=== PATIENT | male | born 1975 | race Caucasian/White ===

== ENCOUNTER 2016-09-25 17:12 | Inpatient (IN) | payer OTHER ==
[~2016-09-25] VITALS: Ht 167.6 cm; Wt 153.8 kg
[2016-09-25 17:20] VITALS: BP_SYST 185
[2016-09-25] MEDS ORDERED: ACETAMINOPHEN 500 MG TABLET PO ONE (17:45)
[2016-09-25] MEDS ORDERED: IBUPROFEN 800 MG TABLET PO ONE (17:45)
[2016-09-25] MEDS ORDERED: NS 1000 ML BAG IV ONE (17:45)
[2016-09-25 17:50] LABS: HEMATOCRIT 34.4 % (36-54); HEMOGLOBIN 11.2 g/dL (14.0-18.0); MEAN CORPUSCULAR HEMOGLOBIN 28 pg (27-31); MEAN CORPUSCULAR HGB CONC 33 % (32-36); MEAN CORPUSCULAR VOLUME 85 fL (79.0-98.0); PLATELET COUNT (AUTO) 268 K/uL (130-430); RED BLOOD CELL COUNT(AUTO) 4.04 MIL/uL (4.2-6.2); RED CELL DISTRIBUTION WIDTH 13.9 % (9.0-15.0); WHITE BLOOD COUNT (AUTO) 17.7 K/uL (4.8-10.8)
[2016-09-25 18:03] LABS: CREATININE 2.92 mg/dL (0.55-1.30)
[2016-09-25 18:05] LABS: INR 0.9 (0.80-1.20); PROTHROMBIN TIME 10.3 SECS (9.5-12.5)
[2016-09-25 18:08] LABS: ALBUMIN 2.6 g/dL (3.4-4.8); TOTAL BILIRUBIN 0.2 mg/dL (0.0-1.0); TOTAL PROTEIN, SERUM 7.8 g/dL (6.4-8.3)
[2016-09-25 18:11] LABS: ATYPICAL LYMPHOCYTES % 1 % (0-0); BAND % (MANUAL) 22 % (0-6); BASOPHILS % (MANUAL) 0 % (0-2); EOSINOPHILS % (MANUAL) 1 % (0-7); LYMPHOCYTES % (MANUAL) 1 % (20-46); MONOCYTES % (MANUAL) 1 % (0-11)
[2016-09-25 18:15] LABS: POTASSIUM 5.8 mmol/L (3.5-5.1)
[2016-09-25 18:36] LABS: CKMB RELATIVE INDEX 0.9 (0.0-2.9); CREATINE KINASE MB 3.8 ng/mL (0-3.6)
[2016-09-25 18:53] LABS: BILIRUBIN,URINE NEGATIVE (NEGATIVE); BLOOD, URINE 2+ (NEGATIVE); CLARITY/URINE SL HAZY (CLEAR); COLOR,URINE YELLOW (YELLOW); GLUCOSE,URINE 1+ (NEGATIVE); KETONES,URINE NEGATIVE (NEGATIVE); LEUKOCYTE ESTERASE ,URINE NEGATIVE (NEGATIVE); NITRITE, URINE NEGATIVE (NEGATIVE); PH,URINE 5.5 (5.0-8.0); PROTEIN URINE 3+ (NEGATIVE); UROBILINOGEN,URINE 0.2 (0.2-1.0)
[2016-09-25 19:04] LABS: BACTERIA,URINE FEW /HPF (None Seen)
[2016-09-25 19:05] LABS: MUCUS,URINE None Seen /LPF (None Seen); URINE AMORPHOUS URATE 2+ /HPF (None Seen)
[2016-09-25] MEDS ORDERED: cefTRIAXone 1 GM VIAL IM ONE (19:45)
[2016-09-25] MEDS ORDERED: LEVOFLOXACIN 500 MG/D5W 100 ML IV ONE (19:45)
[2016-09-25] MEDS ORDERED: CARV25TA55 PO (20:25)
[2016-09-25] MEDS ORDERED: ACET500C38 PO (20:25)
[2016-09-25] MEDS ORDERED: TORBREX OP (20:25)
[2016-09-25] MEDS ORDERED: FURO-149 PO (20:25)
[2016-09-25] MEDS ORDERED: OLME1TAB50 PO (20:27)
[2016-09-25] MEDS ORDERED: BROM5DRO3 OP ×2 (20:29→20:35)
[2016-09-25] MEDS ORDERED: MOXI3DRO OP (20:34)
[2016-09-25] MEDS ORDERED: BRIM10DR2 OP (20:34)
[2016-09-25] MEDS ORDERED: DORZ10DR8 OP (20:35)
[2016-09-25] MEDS ORDERED: ALBI50PE SQ (20:37)
[2016-09-25] MEDS ORDERED: LIDOCAINE 1%, 20 ML MDV 20 ML ONE (20:50)
[2016-09-25] MEDS ORDERED: INSU100I24 SQ (20:55)
[2016-09-25 21:38] VITALS: BP_SYST 120
[2016-09-25 21:39] VITALS: BP_SYST 120
[2016-09-25 21:44] VITALS: BP_SYST 120
[2016-09-25] MEDS: NACL 0.9% 1,000 ML IV SCH (22:36)
[2016-09-25] MEDS ORDERED: SODIUM BICARBONATE 8.4% JECT 50 MEQ/50 ML SYRINGE IVP ONE (23:00)
[2016-09-25] MEDS ORDERED: SODIUM POLYSTYRENE SULFONATE 15 GM/60 ML UDBTL PO ONE (23:00)
[2016-09-26 00:51] VITALS: BP_SYST 131
[2016-09-26 03:51] VITALS: BP_SYST 167
[2016-09-26] MEDS: NACL 0.9% 1,000 ML IV SCH ×4 (06:31→21:07)
[2016-09-26 06:45] LABS: CALCIUM 7.4 mg/dL (8.4-11.0); CREATININE 3.59 mg/dL (0.55-1.30); POTASSIUM 5.3 mmol/L (3.5-5.1); TOTAL BILIRUBIN 0.3 mg/dL (0.0-1.0); TOTAL PROTEIN, SERUM 6.9 g/dL (6.4-8.3)
[2016-09-26 06:51] LABS: HEMATOCRIT 31.2 % (36-54); HEMOGLOBIN 10.4 g/dL (14.0-18.0)
[2016-09-26 07:26] LABS: MEAN CORPUSCULAR HEMOGLOBIN 29 pg (27-31); MEAN CORPUSCULAR HGB CONC 33 % (32-36); MEAN CORPUSCULAR VOLUME 86 fL (79.0-98.0); PLATELET COUNT (AUTO) 229 K/uL (130-430); RED BLOOD CELL COUNT(AUTO) 3.62 MIL/uL (4.2-6.2); RED CELL DISTRIBUTION WIDTH 14.3 % (9.0-15.0)
[2016-09-26 07:32] LABS: WHITE BLOOD COUNT (AUTO) 28.5 K/uL (4.8-10.8)
[2016-09-26 08:00] VITALS: BP_SYST 158
[2016-09-26] MEDS ORDERED: ALBIGLUTIDE 50 MG SQ SCH (09:30)
[2016-09-26 10:16] LABS: ATYPICAL LYMPHOCYTES % 0 % (0-0); BAND % (MANUAL) 23 % (0-6); BASOPHILS % (MANUAL) 0 % (0-2); EOSINOPHILS % (MANUAL) 0 % (0-7); LYMPHOCYTES % (MANUAL) 3 % (20-46); MONOCYTES % (MANUAL) 1 % (0-11)
[2016-09-26] MEDS ORDERED: DIAMOX SEQUELS 500 MG CAPSULE.SA PO ONE (11:45)
[2016-09-26] MEDS ORDERED: CARVEDILOL 25 MG TABLET (COREG) PO ONE (11:45)
[2016-09-26] MEDS ORDERED: FUROSEMIDE 40 MG TABLET PO ONE (11:45)
[2016-09-26] MEDS ORDERED: MOXIFLOXACIN HCL OP SCH (12:00)
[2016-09-26] MEDS: ACETAMINOPHEN 500 MG TABLET PO PRN ×2 (12:12→14:05)
[2016-09-26 12:35] VITALS: BP_SYST 147
[2016-09-26] MEDS: PIPERACILLIN/TAZO 2.25G/DEX-IS 50 ML IV SCH ×3 (13:43→23:21)
[2016-09-26 16:33] VITALS: BP_SYST 119
[2016-09-26] MEDS ORDERED: SODIUM POLYSTYRENE SULFONATE 15 GM/60 ML UDBTL PO ONE (17:00)
[2016-09-26 20:00] VITALS: BP_SYST 132
[2016-09-26] MEDS ORDERED: LEVOFLOXACIN 500 MG/D5W 100 ML IV SCH (20:00)
[2016-09-26] MEDS: TOBRAMYCIN SULFATE 0.3% EYE DROPS 5 ML OP SCH (21:00)
[2016-09-26] MEDS: DORZOLAMIDE 2% OPHTHALMIC SOLN 5ML OP SCH (21:00)
[2016-09-26] MEDS: CARVEDILOL 25 MG TABLET (COREG) PO SCH (21:04)
[2016-09-27 01:31] VITALS: BP_SYST 134
[2016-09-27 05:45] VITALS: BP_SYST 139
[2016-09-27] MEDS: NACL 0.9% 1,000 ML IV SCH ×3 (05:48→20:38)
[2016-09-27] MEDS: PIPERACILLIN/TAZO 2.25G/DEX-IS 50 ML IV SCH ×3 (05:48→17:16)
[2016-09-27 06:36] LABS: BASOPHILS % (AUTO) 0.2 % (0.0-2.0); EOSINOPHILS # (AUTO) 0.1 K/uL (0.0-0.4); EOSINOPHILS % (AUTO) 0.3 % (0.0-4.0); HEMATOCRIT 28.8 % (36-54); HEMOGLOBIN 9.6 g/dL (14.0-18.0); LYMPHOCYTES # (AUTO) 0.9 K/uL (1.0-5.5); MEAN CORPUSCULAR HEMOGLOBIN 29 pg (27-31); MEAN CORPUSCULAR HGB CONC 33 % (32-36); MEAN CORPUSCULAR VOLUME 87 fL (79.0-98.0); MONOCYTES # (AUTO) 0.6 K/uL (0.0-1.0); MONOCYTES % (AUTO) 3.2 % (1.7-9.3); NEUTROPHILS # (AUTO) 15.9 K/uL (1.8-7.7); NEUTROPHILS % (AUTO) 91.3 % (40.0-70.0); PLATELET COUNT (AUTO) 195 K/uL (130-430); RED BLOOD CELL COUNT(AUTO) 3.32 MIL/uL (4.2-6.2); RED CELL DISTRIBUTION WIDTH 14.6 % (9.0-15.0)
[2016-09-27 06:45] LABS: ALBUMIN 1.9 g/dL (3.4-4.8); CALCIUM 7.6 mg/dL (8.4-11.0); CREATININE 3.77 mg/dL (0.55-1.30); POTASSIUM 4.3 mmol/L (3.5-5.1); TOTAL BILIRUBIN 0.2 mg/dL (0.0-1.0); TOTAL PROTEIN, SERUM 6.8 g/dL (6.4-8.3)
[2016-09-27 07:02] LABS: WHITE BLOOD COUNT (AUTO) 17.5 K/uL (4.8-10.8)
[2016-09-27 08:00] VITALS: BP_SYST 141
[2016-09-27] MEDS: CARVEDILOL 25 MG TABLET (COREG) PO SCH ×2 (08:53→20:37)
[2016-09-27] MEDS: amLODIPine BESYLATE 5 MG TABLET PO SCH (08:57)
[2016-09-27] MEDS ORDERED: LOSARTAN POTASSIUM 50 MG TABLET (COZAAR) PO SCH ×2 (09:00)
[2016-09-27] MEDS: TOBRAMYCIN SULFATE 0.3% EYE DROPS 5 ML OP SCH ×2 (09:00→20:46)
[2016-09-27] MEDS ORDERED: INSULIN DEGLUDEC 44 UNIT SQ SCH (09:00)
[2016-09-27] MEDS ORDERED: HYDROCHLOROTHIAZIDE 25 MG TABLET (HCTZ) PO SCH (09:00)
[2016-09-27] MEDS ORDERED: amLODIPine BESYLATE 5 MG TABLET PO SCH (09:00)
[2016-09-27] MEDS ORDERED: FUROSEMIDE 40 MG TABLET PO SCH (09:00)
[2016-09-27] MEDS ORDERED: DIAMOX SEQUELS 500 MG CAPSULE.SA PO SCH (09:00)
[2016-09-27] MEDS: DORZOLAMIDE 2% OPHTHALMIC SOLN 5ML OP SCH ×2 (09:00→20:46)
[2016-09-27 12:22] VITALS: BP_SYST 108
[2016-09-27] MEDS ORDERED: COMMUNICATION ORDER XX ONE (14:45)
[2016-09-27 16:09] LABS: HEPATITIS B SURFACE AG Negative (Negative); HEPATITIS C VIRUS AB 0.2 s/co ratio (0.0-0.9)
[2016-09-27 16:20] VITALS: BP_SYST 129
[2016-09-27 20:00] VITALS: BP_SYST 147
[2016-09-28] MEDS: PIPERACILLIN/TAZO 2.25G/DEX-IS 50 ML IV SCH ×4 (00:09→16:58)
[2016-09-28 00:42] VITALS: BP_SYST 122
[2016-09-28] MEDS: NACL 0.9% 1,000 ML IV SCH ×3 (01:22→16:45)
[2016-09-28 05:11] LABS: BASOPHILS % (AUTO) 0.3 % (0.0-2.0); EOSINOPHILS # (AUTO) 0.3 K/uL (0.0-0.4); EOSINOPHILS % (AUTO) 2.8 % (0.0-4.0); HEMATOCRIT 29.9 % (36-54); LYMPHOCYTES # (AUTO) 1.1 K/uL (1.0-5.5); LYMPHOCYTES % (AUTO) 10.8 % (20.5-51.5); MEAN CORPUSCULAR HEMOGLOBIN 29 pg (27-31); MEAN CORPUSCULAR HGB CONC 33 % (32-36); MEAN CORPUSCULAR VOLUME 87 fL (79.0-98.0); MONOCYTES # (AUTO) 0.5 K/uL (0.0-1.0); MONOCYTES % (AUTO) 4.8 % (1.7-9.3); NEUTROPHILS # (AUTO) 8.4 K/uL (1.8-7.7); NEUTROPHILS % (AUTO) 81.3 % (40.0-70.0); PLATELET COUNT (AUTO) 209 K/uL (130-430); RED BLOOD CELL COUNT(AUTO) 3.45 MIL/uL (4.2-6.2); RED CELL DISTRIBUTION WIDTH 14.7 % (9.0-15.0); WHITE BLOOD COUNT (AUTO) 10.3 K/uL (4.8-10.8)
[2016-09-28 05:18] LABS: ALBUMIN 1.9 g/dL (3.4-4.8); CALCIUM 7.8 mg/dL (8.4-11.0); CREATININE 3.7 mg/dL (0.55-1.30); POTASSIUM 4.4 mmol/L (3.5-5.1); TOTAL BILIRUBIN 0.2 mg/dL (0.0-1.0)
[2016-09-28 05:54] VITALS: BP_SYST 139
[2016-09-28 08:00] VITALS: BP_SYST 157
[2016-09-28] MEDS: amLODIPine BESYLATE 5 MG TABLET PO SCH (08:45)
[2016-09-28] MEDS: CARVEDILOL 25 MG TABLET (COREG) PO SCH ×2 (08:45→20:41)
[2016-09-28] MEDS: TOBRAMYCIN SULFATE 0.3% EYE DROPS 5 ML OP SCH ×2 (09:00→21:00)
[2016-09-28] MEDS: DORZOLAMIDE 2% OPHTHALMIC SOLN 5ML OP SCH ×2 (09:00→20:41)
[2016-09-28 12:30] VITALS: BP_SYST 140
[2016-09-28 16:00] VITALS: BP_SYST 139
[2016-09-28 20:35] VITALS: BP_SYST 159
[2016-09-29] MEDS: PIPERACILLIN/TAZO 2.25G/DEX-IS 50 ML IV SCH ×2 (00:58→06:25)
[2016-09-29 01:18] VITALS: BP_SYST 151
[2016-09-29] MEDS: NACL 0.9% 1,000 ML IV SCH (01:23)
[2016-09-29 03:52] VITALS: BP_SYST 131
[2016-09-29 06:34] LABS: BASOPHILS % (AUTO) 0.5 % (0.0-2.0); EOSINOPHILS # (AUTO) 0.4 K/uL (0.0-0.4); EOSINOPHILS % (AUTO) 4.2 % (0.0-4.0); HEMATOCRIT 29.7 % (36-54); HEMOGLOBIN 9.7 g/dL (14.0-18.0); LYMPHOCYTES # (AUTO) 1.1 K/uL (1.0-5.5); LYMPHOCYTES % (AUTO) 13.3 % (20.5-51.5); MEAN CORPUSCULAR HEMOGLOBIN 28 pg (27-31); MEAN CORPUSCULAR HGB CONC 33 % (32-36); MEAN CORPUSCULAR VOLUME 87 fL (79.0-98.0); MONOCYTES # (AUTO) 0.4 K/uL (0.0-1.0); MONOCYTES % (AUTO) 5.2 % (1.7-9.3); NEUTROPHILS # (AUTO) 6.6 K/uL (1.8-7.7); NEUTROPHILS % (AUTO) 76.8 % (40.0-70.0); PLATELET COUNT (AUTO) 234 K/uL (130-430); RED CELL DISTRIBUTION WIDTH 14.7 % (9.0-15.0); WHITE BLOOD COUNT (AUTO) 8.5 K/uL (4.8-10.8)
[2016-09-29 07:07] LABS: ALBUMIN 2.1 g/dL (3.4-4.8); CALCIUM 7.9 mg/dL (8.4-11.0); CREATININE 3.27 mg/dL (0.55-1.30); POTASSIUM 4.6 mmol/L (3.5-5.1); TOTAL BILIRUBIN 0.2 mg/dL (0.0-1.0); TOTAL PROTEIN, SERUM 7.2 g/dL (6.4-8.3)
[2016-09-29 07:51] VITALS: BP_SYST 153
[2016-09-29] MEDS: DORZOLAMIDE 2% OPHTHALMIC SOLN 5ML OP SCH (09:00)
[2016-09-29] MEDS: TOBRAMYCIN SULFATE 0.3% EYE DROPS 5 ML OP SCH (09:00)
[2016-09-29] MEDS: amLODIPine BESYLATE 5 MG TABLET PO SCH (09:54)
[2016-09-29] MEDS: CARVEDILOL 25 MG TABLET (COREG) PO SCH (09:54)
[2016-09-29 11:28] VITALS: BP_SYST 143
[2016-09-29 12:11] VITALS: BP_SYST 143
== END 2016-09-29 12:20 | disposition home or self-care (01) | DRG 871 ==
LOC: SED 17:15 → STU 20:02
PROVIDERS: ADMIT Family Medicine; ATTEND Family Medicine
DX: A41.9 Sepsis, unspecified organism (principal); N17.0 Acute kidney failure with tubular necrosis; Z68.43 Body mass index [BMI] 50.0-59.9, adult; L03.213 Periorbital cellulitis; H33.20 Serous retinal detachment, unspecified eye; N10 Acute pyelonephritis; E11.9 Type 2 diabetes mellitus without complications; N18.9 Chronic kidney disease, unspecified; I12.9 Hypertensive chronic kidney disease with stage 1 through stage 4 chronic kidney disease, or unspecified chronic kidney disease; E66.01 Morbid (severe) obesity due to excess calories; H40.9 Unspecified glaucoma; E87.5 Hyperkalemia
CPT/HCPCS: 36415; 70486-TC; 71010; 76770; 80053; 81000-TC; 82009-TC; 82550-TC; 82553-TC; 82962; 83605; 84484; 85007; 85025; 85027; 85610-TC; 85730-TC; 86592; 86803; 87040-TC; 87070-TC; 87086; 87340; 93005; 96360; 96361; 99285; J0696; J1815; J1956; J2001; J2543; J7030

== ENCOUNTER 2023-10-15 12:03 | Emergency (ER) | payer BC, MEDICAID ==
[~2023-10-15] VITALS: Ht 167.6 cm; Wt 158.8 kg
[~2023-10-15 12:03] MED LIST: ALBI50PE SQ; BRIM10DR2 OP; BROM5DRO3 OP; CARV25TA55 PO; DORZ10DR8 OP; INSU100I24 SQ; MOXI3DRO OP; OLME1TAB50 PO; TORBREX OP
[2023-10-15 12:27] VITALS: BP_SYST 115; PULSE 78; RESP 18; TEMP 98.2; O2SAT 98
[2023-10-15] MEDS: MORPHINE 4 MG INJ. 4 MG/ML VIAL IM ONE (14:25)
[2023-10-15 16:35] VITALS: BP_SYST 115; PULSE 78; RESP 18; TEMP 98.2; O2SAT 98
[2023-10-15] MEDS ORDERED: LIDO1ADH71 TD (16:36)
[2023-10-15] MEDS ORDERED: PERC10 PO (16:36)
== END 2023-10-15 16:37 | disposition home or self-care (01) ==
LOC: SED 12:03
DX: S82.042A Displaced comminuted fracture of left patella, initial encounter for closed fracture (principal); S82.142A Displaced bicondylar fracture of left tibia, initial encounter for closed fracture; H54.3 Unqualified visual loss, both eyes; E11.22 Type 2 diabetes mellitus with diabetic chronic kidney disease; I12.0 Hypertensive chronic kidney disease with stage 5 chronic kidney disease or end stage renal disease; N18.6 End stage renal disease; Z79.899 Other long term (current) drug therapy; Z79.2 Long term (current) use of antibiotics; W01.0XXA Fall on same level from slipping, tripping and stumbling without subsequent striking against object, initial encounter; Y93.89 Activity, other specified; Y92.89 Other specified places as the place of occurrence of the external cause; Y99.8 Other external cause status
CPT/HCPCS: 99285; 29505; 73700; 96372; J2270